=== PATIENT | female | born 2000 | race Caucasian/White ===

== ENCOUNTER 2020-04-29 20:00 | Emergency (ER) | payer MEDICAID, SELFPAY ==
[2020-04-29 20:04] VITALS: BP 115/64; PULSE 112; RESP 18; TEMP 36.7; O2SAT 99; BMI 19.2
[2020-04-29 21:09] LABS: Absolute Lymphocyte Count 1.36 X10^3/uL (0.83-4.51); Absolute Neutrophil Count 6.7 X10^3/uL (2.0-7.7); Basophil# 0.04 X10^3/uL; Basophil% 0.4 % (0-1); Eosinophil# 0.17 X10^3/uL; Eosinophils% 1.9 % (0-5); Hematocrit 37.7 % (37-47); Hemoglobin 12.4 g/dL (12.0-15.0); Lymphocyte # 1.36 X10^3/ul (4.0); Lymphocyte % 15.2 % (19-41); Mean Corp Hgb Conc 32.9 g/dL (32-36); Mean Corpuscular Hgb 31.7 pg (27.0-32.0); Mean Corpuscular Volume 96.4 fL (81-99); Mean Platelet Vol. 10.4 fl (6.2-12.0); Monocyte# 0.63 X10^3/uL; NRBC Flagged by Analyzer 0 % (0-5); Neutrophil # 6.72 X10^3/uL (2.7-7.7); Neutrophil % 75.3 % (47-70); Platelet Count 207 K/mm3 (150-450); RBC Distribution Width CV 12.1 % (11.6-14.6); RBC Distribution Width SD 42.7 fl (35.1-43.9); Red Blood Count 3.91 M/mm3 (4.2-5.4); White Blood Count 8.9 K/mm3 (4.4-11.0)
[2020-04-29 21:12] LABS: Internal QC Validated? YES +Cl - CLEAR BKGD; Pregnancy, Urine Negative Negative
[2020-04-29 21:25] LABS: Anion Gap 4 (5-15); BUN 15 mg/dL (7-18); BUN/Creat Ratio 23.9 RATIO (10-20); Calcium,Total 8.8 mg/dL (8.5-10.1); Chloride 104 mmol/L (98-107); Creatinine, Serum 0.63 mg/dL (0.55-1.02); EST Glomerular Filtration Rate 127 mL/min (>60); Est Glom Filt Rate - Afr Amer 154 mL/min (>60); Estimated Creatinine Clearance 113.29 ml/min; Glucose 95 mg/dL (74-106); Potassium 3.8 mmol/L (3.5-5.1); Sodium Level 138 mmol/L (136-145)
[2020-04-29 21:28] LABS: Amphetamine Urine VISTA NEGATIVE (<1000 ng/mL); Barbiturate Urine VISTA NEGATIVE (< 200 ng/mL); Benzodiazepine Urine VISTA NEGATIVE (< 200 ng/mL); Cocaine Urine VISTA NEGATIVE (< 300 ng/mL); Ecstacy Urine VISTA NEGATIVE (< 500 ng/mL); Methadone Urine VISTA NEGATIVE (< 300 ng/mL); PCP Urine VISTA NEGATIVE (< 25 ng/mL); THC Urine VISTA NEGATIVE (< 50 ng/mL); Vista UDS pH Range 5
[2020-04-29 21:37] LABS: Alcohol, Blood (Medical)-Serum < 3.0 mg/dL
[2020-04-29 21:39] VITALS: BP 126/68; PULSE 93; RESP 16; O2SAT 100
--- NOTE | 2020-04-29 22:27 | ED.VISSUMM ---
- ER Visit Summary Date of Service: 04/29/20 Chief Complaint: Detox from methamphetamine History of Present Illness: The patient is a 20 F who presents requesting detox from methamphetamine. Patient states she uses less than 0.4 g/day. Patient states she snorts and smokes the methamphetamine. Patient states her last use was 3 days ago. Patient states she was told to come to the emergency department for admission to detox if she felt like she would not be able to make it through the weekend without relapsing. Patient denies any fevers or chills. Patient denies any chest pain or shortness of breath. Patient denies any nausea or vomiting. Patient does admit to some mild low back pain. Patient states she also uses marijuana occasionally. Physical Examination: Vital signs are stable. Patient is afebrile. Patient is in no acute distress. Oral mucosa is pink and moist. Neck is supple. Trachea is midline. There is no JVD noted. Heart was regular rate and rhythm. Lungs are clear and equal bilaterally. Abdomen is soft. Bowel sounds are normal. There is no tenderness. There is no rebound or guarding noted. Skin is warm dry. Cranial nerves II through XII are intact. There are no focal motor or sensory deficits noted. Extremities are intact. There is no calf tenderness or edema. Test Results: CBC and basic metabolic profile were obtained and were within normal limits. Urine hCG was negative. Urine tox screen was negative. Serum alcohol level was negative. Liver profile was obtained and was within normal limits. Emergency Department Course and Treatment: Patient was feeling better on reevaluation. Case was discussed with the hospitalist. He informed me that there is no indication for hospitalization for methamphetamine abuse. Patient will be given instructions to follow-up with 180 tomorrow. Patient was instructed to return if worse in any way. Patient understood and was agreeable with the plan. All questions were answered. Disposition: Discharge home Impression: 1. Methamphetamine abuse This note was generated with [employer] dictation software. It may contain incorrect words, spelling, and punctuation that were not noted in review of the chart prior to signing ED Disposition - Plan for ED Patient: Disposition: Home or Assisted Living Diagnosis: Methamphetamine abuse Instructions: ED AMPHETAMINE ABUSE Referrals: [facility] [STAFF PHYSICIAN] - 1-2 Days if not improving [facility] TIJERINA [Other] - 3-5 Days
[2020-04-29 22:52] LABS: AST(SGOT) 11 U/L (15-37); Alanine Aminotransfer ALT/SGPT 18 U/L (13-56); Alkaline Phosphatase 48 U/L (45-117); Bilirubin, Direct 0.26 mg/dL (0.00-0.30); Globulin 3.3 g/dL (2.2-4.2); Protein, Total 7.3 g/dL (6.4-8.2)
[2020-04-30 00:12] VITALS: RESP 16
== END 2020-04-30 00:13 | disposition home or self-care (01) ==
PROVIDERS: Emergency Provider Emergency Medicine
DX: F15.10 Other stimulant abuse, uncomplicated (principal); Z72.0 Tobacco use
CPT/HCPCS: 36415; 80048; 80076; 80307; 80320; 81025; 85025; 99282; G0480

== ENCOUNTER 2020-12-13 10:34 | Emergency (ER) | payer MEDICAID, SELFPAY ==
[2020-12-13 10:36] VITALS: BP 134/81; PULSE 113; RESP 16; TEMP 36.9; O2SAT 98
--- NOTE | 2020-12-13 11:11 | ED.DCSUM_ITS ---
- ER Visit Summary Date of Service: 12/13/20 Chief Complaint: [Fever] History of Present Illness: The patient is a 20 F [presents to the emergency department complaint of a fever that started yesterday. Patient also complains of cough, mild headache, sore throat, chills and sweats. Her temperature at home yesterday was 100.2. Patient denies any Covid exposures. She did not get a flu shot this year. Patient complains of decreased appetite this morning and some nausea but no vomiting. She denies abdominal pain. Cough is been nonproductive. Patient has no medical history. Patient states that she has been clean of drugs and alcohol for 6 months.] Physical Examination: [HEGENTRY-PERRLA, EOMI. Cranial nerves II through XII grossly intact. TMs clear. Mucous membranes moist. No adenopathy. Cardiovascular-regular rate and rhythm without murmur or ectopy Lungs-clear to auscultation, chest wall stable without crepitus or subcu emphysema Abdomen-normoactive bowel sounds, soft, nontender, no rebound or rigidity, no peritoneal signs. Extremities-intact ?4, normal range of motion, normal pulses, atraumatic] Test Results: [COVID-19 test was positive] Emergency Department Course and Treatment: [None indicated] Treatment Plan: [Patient advised to quarantine for 14 days] Disposition: [Discharged home in stable condition] Impression: [COVID-19 upper respiratory infection] This note was generated with [employer] dictation software. It may contain incorrect words, spelling, and punctuation that were not noted in review of the chart prior to signing ED Disposition - Plan for ED Patient: Referrals: [facility] Doctor,Out of [NON-STAFF] -
--- NOTE | 2020-12-13 12:18 | ED.DEP ---
ED Disposition - Plan for ED Patient: Instructions: Coronavirus Disease 2019 (COVID-19): Overview, Coronavirus Disease 2019 (COVID-19): Caring for Yourself or Others Referrals: [facility],Out of [NON-STAFF] - 1 Week if not improving Additional Instructions: self quarantine for 14 days
[2020-12-13 12:32] VITALS: PULSE 90; RESP 18; O2SAT 98
== END 2020-12-13 12:50 | disposition home or self-care (01) ==
LOC: ED 12:05
PROVIDERS: Emergency Provider Emergency Medicine
DX: U07.1 COVID-19 (principal); J06.9 Acute upper respiratory infection, unspecified; Z72.0 Tobacco use
CPT/HCPCS: 87426; 87804; 99282

== ENCOUNTER → 2021-07-27 | Outpatient (CLI) | payer MEDICAID, SELFPAY | END | disposition home or self-care (01) | LOC: LABSPEC 15:09 | PROVIDERS: Visit Provider Physician Assistant | DX: Z20.822 Contact with and (suspected) exposure to COVID-19 (principal) | CPT/HCPCS: 87635; U0005; U0003 ==

== ENCOUNTER 2021-11-30 15:01 | Outpatient (CLI) | payer MEDICAID, SELFPAY ==
[2021-11-30 16:23] LABS: Absolute Lymphocyte Count 1.32 X10^3/uL (0.83-4.51); Absolute Neutrophil Count 4.9 X10^3/uL (2.0-7.7); Basophil# 0.06 X10^3/uL; Basophil% 0.9 % (0-1); Eosinophil# 0.14 X10^3/uL; Hematocrit 37.7 % (37-47); Hemoglobin 12.3 g/dL (12.0-15.0); Lymphocyte # 1.32 X10^3/ul (0.83-4.51); Lymphocyte % 19.3 % (19-41); Mean Corp Hgb Conc 32.6 g/dL (32-36); Mean Corpuscular Hgb 30.5 pg (27.0-32.0); Mean Corpuscular Volume 93.5 fL (81-99); Mean Platelet Vol. 10.6 fl (6.2-12.0); Monocyte# 0.44 X10^3/uL; Monocyte% 6.4 % (0-10); NRBC Flagged by Analyzer 0 % (0-5); Neutrophil # 4.86 X10^3/uL (2.7-7.7); Neutrophil % 71.3 % (47-70); Platelet Count 223 K/mm3 (150-450); RBC Distribution Width CV 12.1 % (11.6-14.6); RBC Distribution Width SD 41.9 fl (35.1-43.9); Red Blood Count 4.03 M/mm3 (4.2-5.4); White Blood Count 6.8 K/mm3 (4.4-11.0)
[2021-11-30 16:58] LABS: Amphetamine Urine VISTA NEGATIVE (<1000 ng/mL); Barbiturate Urine VISTA NEGATIVE (< 200 ng/mL); Benzodiazepine Urine VISTA NEGATIVE (< 200 ng/mL); Cocaine Urine VISTA NEGATIVE (< 300 ng/mL); Ecstacy Urine VISTA NEGATIVE (< 500 ng/mL); Methadone Urine VISTA NEGATIVE (< 300 ng/mL); PCP Urine VISTA NEGATIVE (< 25 ng/mL); THC Urine VISTA NEGATIVE (< 50 ng/mL); Vista UDS pH Range 5
[2021-12-01 09:54] LABS: HIV - WCH Non-Reactive (Nonreactive); Hepatitis B Surface Antigen Non-Reactive (Nonreactive); Hepatitis C Antibody Non-Reactive (Nonreactive); Rubella IgG Reactive (Nonreactive); Syphilis Antibodies Non-reactive
[2021-12-04 18:08] LABS: Chlamydia By Nucleic Acid AMP Negative (Negative)
[2021-12-05 12:44] LABS: Gonococcus By Nucleic Acid AMP Negative (Negative)
[2021-12-05 20:57] LABS: HPV Reflexed? NOT INDICATED
== END 2021-11-30 23:59 | disposition short-term general hospital (02) ==
PROVIDERS: Visit Provider Student in an Organized Health Care Education/Training Program
DX: Z34.81 Encounter for supervision of other normal pregnancy, first trimester (principal); Z12.4 Encounter for screening for malignant neoplasm of cervix; Z11.3 Encounter for screening for infections with a predominantly sexual mode of transmission
CPT/HCPCS: 36415; 80307; 85025; 86703; 86762; 86780; 86803; 87086; 87088; 87340; 87491; 87591; 88175; G0145

== ENCOUNTER 2021-12-15 07:07 | Day surgery (SDC) | payer MEDICAID, SELFPAY ==
[2021-12-14 13:54] LABS: Hematocrit 35.7 % (37-47); Hemoglobin 11.9 g/dL (12.0-15.0); Mean Corp Hgb Conc 33.3 g/dL (32-36); Mean Corpuscular Hgb 31.7 pg (27.0-32.0); Mean Corpuscular Volume 95.2 fL (81-99); Mean Platelet Vol. 10.3 fl (6.2-12.0); Platelet Count 206 K/mm3 (150-450); RBC Distribution Width SD 41.8 fl (35.1-43.9); Red Blood Count 3.75 M/mm3 (4.2-5.4); White Blood Count 6.6 K/mm3 (4.4-11.0)
[2021-12-15] VITALS (7 sets, daily range): BP systolic 85–109; BP diastolic 55–81; PULSE 65–82; RESP 16–18; TEMP 36.2–36.6; O2SAT 99–100; BMI 23.4
--- NOTE | 2021-12-15 | POC_PTH ---
PATIENT: SIMÓN DELONG LOC: [facility] [place] U#:[id number] AGE/SX: ROOM: RE12/15/[address]: Dr. Yady Gallo, : 2000 BED: DIS: 12/15/2021 SPEC #: [id number] RECD: 12/15/21 11:32 STATUS: NICO WOOD #: [id number] BRADY: 12/15/21 00:[address]: Yady Gallo DEPT: SURGICAL PATHOLOGY RECD BY: Bárbara Panda Tissues: Product of conception, NOS Procedures: Surgery Specimen Level IV HEADER OPERATION: Suction dilation and curettage PRE-OP DIAGNOSIS: Missed TISSUE SUBMITTED: Products of conception MICROSCOPIC DIAGNOSIS Endometrium, curettage: Chorionic villi, decidualized stroma and trophoblastic cells consistent with products of conception. AM:amado 12/18/2021 MICROSCOPIC DESCRIPTION Slides are reviewed. GROSS DESCRIPTION Received in fixative is one container labeled with the patient's name and designated products of conception. The specimen consists of multiple fragments of hemorrhagic soft tissue that in aggregate measure 8 x 6 x 3 cm. tissue is not identified. Retail Account Specialist tissue is submitted in three cassettes. / SJ:amado 12/15/2021 TC:5 CPT: 53630
[2021-12-15] MEDS: Lactated Ringers 1,000 ML 125 ML IV (07:35)
--- NOTE | 2021-12-15 08:17 | PCM.HP.BLA ---
History and Physical Date of Admission: 12/15/21 HISTORY OF PRESENT ILLNESS: On 12/12/2021, Betsy Ramos, a 21 year old female 2 0 1 0 2, presented for dilation and curettage for missed at 9 weeks. Denies cramping, bleeding, fevers or chills, nausea/emesis, chest pain, dyspnea, diarrhea/constipation. MEDICAL HISTORY: Denies ALLERGIES: No Known Drug Allergies MEDICATIONS HISTORY: 1. promethazine 12.5 mg tablet, 1 tab every 6 hours as needed for nausea REVIEW OF SYSTEMS: Negative otherwise stated above SURGICAL HISTORY: 1. T and A at age 8 MENSTRUAL HISTORY: LMP Known?- DefiniteAmount/Duration - 5 to 7 days, Regularity - Regular, Frequency - monthly days, LMP - 10/06/21, Age Onset Menarche - 9 PAST PREGNANCIES: Total Pregnancies - 3; Full Term Pregnancies - 2; Premature - 0; Abortions, Induced - 0; Abortions, Spontaneous - 1; Ectopics - 0; Multiple Births - 0; Living Children - 2 FAMILY HISTORY: Noncontributory SOCIAL HISTORY: Alcohol Use - denies drinking Smoking - used to smoke but quit and stopped smoking 6 months ago Drug Use - denies PHYSICAL EXAMINATION CONSTITUTIONAL - NAD, well nourished, and well developed SKIN - No rash, lesions, or ulcers HEENT - Normocephalic, PERRLA, EOMI LUNGS - normal respiratory rate and rhythm EXTREMITIES - No edema or calf tenderness NEUROLOGICAL - Cranial nerves II-XII grossly intact PSYCHIATRIC - A and O to time, place, person, mood and affect ASSESSMENT/PLAN BY DIAGNOSIS: 1. Missed 07/05w CRL without cardiac activity. Diagnosis of missed Elects for surgical management. R/B/A discussed. Risks include, but are not limited to: risk of bleeding to the point of transfusion, infection, injury to surrounding to surrounding tissue (bowel/bladder/uterine perforation), VTE, ICU admission.
--- NOTE | 2021-12-15 08:27 | PCM.OPRPT ---
Report of Operation Date of Procedure: 12/15/21 Pre-Operative Diagnosis: Missed Post-Operative Diagnosis: Missed Surgery/Procedure Performed:: Suction dilation and curettage Description of Surgical Findings:: Normal-appearing external genitalia. Products of conception removed. Type of Anesthesia: MAC Specimen's removed: Products of conception Estimated Blood Loss (mL): 100 cc Fluids Replaced: 500 cc Description of Procedure: Indications/risk/benefits: 21-year-old female with diagnosis of missed . Plan for dilation and curettage. All risks, benefits, alternatives were discussed. Risks include are not limited to: Risk of bleeding to the point of transfusion, infection, injury to surrounding tissue including bowel/bladder/uterine perforation, VTE, ICU admission. Patient aware and consented. Procedure: Patient taken to the operating room and MAC anesthesia induced. Patient placed in the dorsal lithotomy position and prepped and draped in the usual sterile fashion. Weighted speculum placed in posterior vagina and Garcia retractor used to visualize the cervix. Anterior lip of the cervix grasped with single-tooth tenaculum. Cervix sequentially dilated. Suction curette placed through cervical canal and used in a 360 degree manner to remove all products of conception from the uterine cavity. Single-tooth tenaculum removed, hemostatic with pressure from ring forceps. Cervix hemostatic. Weighted speculum removed. At the end of the procedure all needle, lap, sponge counts correct x2. Urine output: None measured Complications None
--- NOTE | 2021-12-15 08:28 | PCM.DC ---
Discharge Instructions Diet Discharge Diet: No restrictions Activity Discharge Activity: Return to Normal Activity, May Drive and May Shower May resume sexual activity in: 4 weeks Weight Bearing Status: Weight bearing as tolerated Lifting Restrictions: None Dressing / Incision Call your doctor if you observe: Fever of 101 or Higher, Inability to urinate, Using more than 1 pad per hour, Shortness of breath, Dizziness, Fainting spells, Chest pain, Calf discomfort and Uncontrolled pain Follow Up Care Please Follow Up With: Yady Gallo DO When: 2 weeks post operativ evisit Test Results: Test results from this visit will be discussed in further detail at your follow-up appointment, if applicable. Discharge Plan Admission Primary Reason for Your Visit: Miscarriage Attending Provider: Yady Gallo Discharge Orders/Prescriptions Prescriptions: No Action NK RF: 0 Referrals / Follow Up: AGUSTINA TIJERINA [Other] Disposition Disposition (needs filled in before D/C Order can be placed): Home, Self Care
== END 2021-12-15 23:59 | disposition home or self-care (01) ==
LOC: SDC 07:11 → AC 07:11
PROVIDERS: Referring Provider Student in an Organized Health Care Education/Training Program; Visit Provider Student in an Organized Health Care Education/Training Program
PROC: (CPT 59812; principal; 2021-12-15 08:30)
DX: O03.4 Incomplete spontaneous abortion without complication (principal); Z87.891 Personal history of nicotine dependence
CPT/HCPCS: 59812; 01965; 85027; 86850; 86900; 86901; 87426; 88305; C9803; J7120; J2405

== ENCOUNTER 2021-12-29 09:56 | Outpatient (CLI) | payer MEDICAID, SELFPAY ==
[2021-12-29 11:06] LABS: hCG Titer Quant., Serum 53 mIU/mL (1-3)
== END 2021-12-29 23:59 | disposition home or self-care (01) ==
LOC: WOBLAB 09:57
PROVIDERS: Visit Provider Student in an Organized Health Care Education/Training Program
DX: O03.9 Complete or unspecified spontaneous abortion without complication (principal)
CPT/HCPCS: 36415; 84702

== ENCOUNTER 2022-01-05 08:58 | Outpatient (CLI) | payer MEDICAID, SELFPAY ==
[2022-01-05 10:07] LABS: hCG Titer Quant., Serum 16 mIU/mL (1-3)
== END 2022-01-05 23:59 | disposition home or self-care (01) ==
PROVIDERS: Visit Provider Obstetrics & Gynecology
DX: O02.1 Missed abortion (principal)
CPT/HCPCS: 36415; 84702

== ENCOUNTER 2022-02-13 14:34 | Emergency (ER) | payer MEDICAID, SELFPAY ==
[2022-02-13 14:35] VITALS: BP 121/66; PULSE 84; RESP 12; TEMP 35.8; BMI 23.3
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
== END 2022-02-13 15:33 | disposition home or self-care (01) ==
PROVIDERS: Emergency Provider Emergency Medicine; Visit Provider Emergency Medicine
DX: S29.011A Strain of muscle and tendon of front wall of thorax, initial encounter (principal); V44.6XXA Car passenger injured in collision with heavy transport vehicle or bus in traffic accident, initial encounter; Z87.891 Personal history of nicotine dependence
CPT/HCPCS: 71046; 99283

== ENCOUNTER → 2022-08-30 | Outpatient (CLI) | payer MEDICAID, SELFPAY ==
[2022-08-30 14:51] LABS: Absolute Lymphocyte Count 1.14 X10^3/uL (0.83-4.51); Absolute Neutrophil Count 7.3 X10^3/uL (2.0-7.7); Basophil# 0.06 X10^3/uL; Basophil% 0.7 % (0-1); Eosinophil# 0.09 X10^3/uL; Hematocrit 33.1 % (37-47); Hemoglobin 11.3 g/dL (12.0-15.0); Lymphocyte # 1.14 X10^3/ul (0.83-4.51); Lymphocyte % 12.5 % (19-41); Mean Corp Hgb Conc 34.1 g/dL (32-36); Mean Corpuscular Hgb 31.4 pg (27.0-32.0); Mean Corpuscular Volume 91.9 fL (81-99); Mean Platelet Vol. 10.7 fl (6.2-12.0); Monocyte# 0.47 X10^3/uL; Monocyte% 5.2 % (0-10); NRBC Flagged by Analyzer 0 % (0-5); Neutrophil # 7.33 X10^3/uL (2.7-7.7); Neutrophil % 80.3 % (47-70); Platelet Count 215 K/mm3 (150-450); RBC Distribution Width CV 12.7 % (11.6-14.6); RBC Distribution Width SD 42.4 fl (35.1-43.9); White Blood Count 9.1 K/mm3 (4.4-11.0)
[2022-08-30 15:58] LABS: HIV - WCH Non-Reactive (Nonreactive); Hepatitis B Surface Antigen Non-Reactive (Nonreactive); Hepatitis C Antibody Non-Reactive (Nonreactive); Rubella IgG Reactive (Nonreactive); Syphilis Antibodies Non-reactive
[2022-09-01 09:43] LABS: V-Zoster IgG (Immunity) 665 index (Immune >165)
[2022-09-04 04:07] LABS: Chlamydia By Nucleic Acid AMP Negative (Negative)
[2022-09-04 18:03] LABS: Gonococcus By Nucleic Acid AMP Negative (Negative)
== END | disposition home or self-care (01) ==
LOC: WOBLAB 14:10
PROVIDERS: Visit Provider Obstetrics & Gynecology
DX: Z34.81 Encounter for supervision of other normal pregnancy, first trimester (principal)
CPT/HCPCS: 36415; 85025; 86703; 86762; 86780; 86787; 86803; 87077; 87086; 87088; 87186; 87340; 87491; 87591

== ENCOUNTER → 2023-01-09 | Outpatient (CLI) | payer MEDICAID, SELFPAY ==
[2023-01-09 11:33] LABS: Absolute Lymphocyte Count 1.14 X10^3/uL (0.83-4.51); Absolute Neutrophil Count 7.2 X10^3/uL (2.0-7.7); Basophil# 0.05 X10^3/uL; Basophil% 0.5 % (0-1); Eosinophil# 0.14 X10^3/uL; Eosinophils% 1.5 % (0-5); Hematocrit 28.9 % (37-47); Hemoglobin 9.3 g/dL (12.0-15.0); Lymphocyte # 1.14 X10^3/ul (0.83-4.51); Lymphocyte % 12.4 % (19-41); Mean Corp Hgb Conc 32.2 g/dL (32-36); Mean Corpuscular Hgb 31.6 pg (27.0-32.0); Mean Corpuscular Volume 98.3 fL (81-99); Mean Platelet Vol. 9.8 fl (6.2-12.0); Monocyte# 0.63 X10^3/uL; Monocyte% 6.9 % (0-10); NRBC Flagged by Analyzer 0 % (0-5); Neutrophil # 7.17 X10^3/uL (2.7-7.7); Neutrophil % 78.3 % (47-70); Platelet Count 228 K/mm3 (150-450); RBC Distribution Width CV 12.3 % (11.6-14.6); RBC Distribution Width SD 44.2 fl (35.1-43.9); Red Blood Count 2.94 M/mm3 (4.2-5.4); White Blood Count 9.2 K/mm3 (4.4-11.0)
[2023-01-09 11:40] LABS: Glucose Challenge Gest 1H 50g 82 mg/dL (70-140)
== END | disposition home or self-care (01) ==
PROVIDERS: Visit Provider Obstetrics & Gynecology
DX: Z34.82 Encounter for supervision of other normal pregnancy, second trimester (principal)
CPT/HCPCS: 36415; 82950; 85025

== ENCOUNTER → 2023-01-18 | Outpatient (CLI) | payer MEDICAID, SELFPAY ==
--- NOTE | 2023-01-18 09:01 | BI_ITS ---
MAMMOGRAPHY - BILATERAL DIAGNOSTIC REASON FOR EXAM: Female, 22 years old. Discharge PERTINENT HISTORY: Grandmother with breast cancer. TECHNIQUE: Digital examination. Mediolateral oblique (MLO) and craniocaudad (CC) views of both breasts were obtained, along with 3-D tomosynthesis. CAD: CAD was performed on this study. COMPARISON: None. Baseline examination. FINDINGS: Breast Composition: Breasts are extremely dense, patient is . There are no dominant masses or suspicious calcifications. No other significant abnormalities are identified. BI/DIAG MAMM W/CAD, BILAT IMPRESSION: Negative diagnostic mammogram. ASSESSMENT CATEGORY: BIRADS Category 1: Negative. A letter regarding these results will be sent to the patient by the facility within 30 days. FOLLOW UP RECOMMENDATION: No imaging follow up needed. (O) Approximately 10% of breast cancers are not detected by mammography. A normal mammogram should not delay biopsy of a clinically suspicious abnormality. Electronically Signed: Yaya Moran MD at 9:49 EDT ,
== END | disposition home or self-care (01) ==
LOC: OPBI 08:59
PROVIDERS: Referring Provider Obstetrics & Gynecology; Visit Provider Obstetrics & Gynecology
DX: O92.29 Other disorders of breast associated with pregnancy and the puerperium (principal); Z3A.00 Weeks of gestation of pregnancy not specified
CPT/HCPCS: 77062; 77066; G0279

== ENCOUNTER → 2023-03-19 | Outpatient (CLI) | payer MEDICAID, SELFPAY ==
[2023-03-19 10:11] LABS: Absolute Lymphocyte Count 1.14 X10^3/uL (0.83-4.51); Absolute Neutrophil Count 6.1 X10^3/uL (2.0-7.7); Basophil# 0.03 X10^3/uL; Basophil% 0.4 % (0-1); Eosinophils% 1.3 % (0-5); Hematocrit 27.2 % (37-47); Hemoglobin 8.5 g/dL (12.0-15.0); Lymphocyte # 1.14 X10^3/ul (0.83-4.51); Lymphocyte % 14.5 % (19-41); Mean Corp Hgb Conc 31.3 g/dL (32-36); Mean Corpuscular Hgb 27.6 pg (27.0-32.0); Mean Corpuscular Volume 88.3 fL (81-99); Mean Platelet Vol. 10.5 fl (6.2-12.0); Monocyte# 0.43 X10^3/uL; Monocyte% 5.5 % (0-10); NRBC Flagged by Analyzer 0 % (0-5); Neutrophil % 77.7 % (47-70); Platelet Count 226 K/mm3 (150-450); RBC Distribution Width CV 13.7 % (11.6-14.6); RBC Distribution Width SD 44.6 fl (35.1-43.9); Red Blood Count 3.08 M/mm3 (4.2-5.4); White Blood Count 7.9 K/mm3 (4.4-11.0)
[2023-03-19 10:42] LABS: Syphilis Antibodies Non-reactive
== END | disposition home or self-care (01) ==
LOC: WOBLAB 09:32
PROVIDERS: Visit Provider Obstetrics & Gynecology
DX: Z34.83 Encounter for supervision of other normal pregnancy, third trimester (principal)
CPT/HCPCS: 36415; 85025; 86780

== ENCOUNTER 2023-03-21 12:26 | Outpatient (CLI) | payer MEDICAID, SELFPAY ==
[2023-03-21] MEDS: 0.9% NaCl Peripheral Flush Adult/Peds IV (12:53)
[2023-03-21] MEDS: 0.9% NaCl IVPB Med Flush (250 mL) 15 ML IV (12:53)
[2023-03-21 12:54] VITALS: BP 111/59; PULSE 89; RESP 14; TEMP 36.9; O2SAT 98; BMI 29.5
[2023-03-21 14:06] VITALS: BP 119/57; PULSE 95; RESP 16; TEMP 37.2; O2SAT 98
== END 2023-03-21 12:27 | disposition home or self-care (01) ==
LOC: MEDOUTP 12:26
PROVIDERS: Referring Provider Obstetrics & Gynecology; Visit Provider Obstetrics & Gynecology
DX: O99.283 Endocrine, nutritional and metabolic diseases complicating pregnancy, third trimester (principal); E61.1 Iron deficiency; Z3A.37 37 weeks gestation of pregnancy
CPT/HCPCS: 96365; J1756; J7050; A4216

== ENCOUNTER 2023-03-29 10:50 | Outpatient (CLI) | payer MEDICAID, SELFPAY ==
[2023-03-29] MEDS: 0.9% NaCl Peripheral Flush Adult/Peds IV (11:01)
[2023-03-29] MEDS: 0.9% NaCl IVPB Med Flush (250 mL) 15 ML IV (11:01)
[2023-03-29 11:04] VITALS: BP 99/60; PULSE 85; RESP 16; TEMP 36.4
[2023-03-29 12:02] VITALS: BP 116/63; PULSE 84; RESP 16
== END 2023-03-29 10:51 | disposition home or self-care (01) ==
LOC: MEDOUTP 10:50
PROVIDERS: PCP Family Medicine; Referring Provider Obstetrics & Gynecology; Visit Provider Obstetrics & Gynecology
DX: E61.1 Iron deficiency (principal)
CPT/HCPCS: 96365; J1756; J7050; A4216

== ENCOUNTER 2023-04-08 21:00 | Inpatient (IN) | payer MEDICAID, SELFPAY ==
[2023-04-08] VITALS (25 sets, daily range): BP systolic 96–148; BP diastolic 53–69; PULSE 68–100; TEMP 36.4–36.6; O2SAT 92–99; BMI 30.5
[2023-04-08] MEDS: LACTATED RINGERS 500 ML 999 ML IV (21:20)
[2023-04-08] MEDS: Ondansetron 4 MG/2 ML Vial IV (21:30)
[2023-04-08 21:38] LABS: Absolute Lymphocyte Count 1.14 X10^3/uL (0.83-4.51); Absolute Neutrophil Count 9.5 X10^3/uL (2.0-7.7); Basophil# 0.03 X10^3/uL; Basophil% 0.3 % (0-1); Eosinophil# 0.09 X10^3/uL; Eosinophils% 0.8 % (0-5); Hematocrit 32.9 % (37-47); Hemoglobin 10.1 g/dL (12.0-15.0); Lymphocyte # 1.14 X10^3/ul (0.83-4.51); Mean Corp Hgb Conc 30.7 g/dL (32-36); Mean Corpuscular Hgb 27.7 pg (27.0-32.0); Mean Corpuscular Volume 90.4 fL (81-99); Mean Platelet Vol. 10.1 fl (6.2-12.0); Monocyte# 0.66 X10^3/uL; Monocyte% 5.8 % (0-10); NRBC Flagged by Analyzer 0 % (0-5); Neutrophil # 9.46 X10^3/uL (2.7-7.7); Neutrophil % 82.7 % (47-70); Platelet Count 255 K/mm3 (150-450); RBC Distribution Width SD 64.7 fl (35.1-43.9); Red Blood Count 3.64 M/mm3 (4.2-5.4); White Blood Count 11.4 K/mm3 (4.4-11.0)
[2023-04-08] MEDS: Lactated Ringers 1,000 ML 200 ML IV (21:51)
--- NOTE | 2023-04-08 21:52 | PCM.HP.BLA ---
History and Physical Date of Admission: 04/08/23 HPI: 23-year-old G 4P2 at 40/2 weeks, DIVINE 04/06/2023 by LMP, admitted for labor. Denies leaking of fluid or vaginal bleeding. Reports movement. Denies headache or vision changes, chest pain or shortness of breath, nausea or vomiting, diarrhea constipation, fevers or chills. 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 Tonsillectomy and adenoidectomy 2. Dilation curettage, December 2021 for miscarriage Medications: vitamin, Zoloft Allergies: No known drug allergies Social history: Former tobacco smoker, denies alcohol, former amphetamine use Review system: Negative otherwise stated above Physical exam: Blood pressure 126/63, pulse 93, temp 97.8 ?F General: Uncomfortable with contractions HEENT: Normal cephalic/atraumatic Cardiorespiratory: No increased effort Abdomen: Soft, nontender, gravid Extremities: Minimal edema Neurologic: Cranial nerves II through XII grossly intact, no focal deficits Musculoskeletal: Moves all extremities equally Cervical exam: On admission 5 cm per RN heart rate: 135/mod wilbert/+accel/occasional variable decel [place]: q3-4 Assessment/plan: 23-year-old G 4P2 at 40/2 weeks, DIVINE 04/06/2023 by LMP, admitted for labor. complicated by: GBS positive, history of 35-week delivery for placental abruption, iron deficiency anemia status post Venofer, depression on Zoloft, history of amphetamine use in past. ?Admit for labor. Routine orders ? GBS positive, penicillin ? Desires epidural ? Iron deficiency anemia. Stable on admission. ? Depression: Continue Zoloft ? History of amphetamine use, no longer using. Drug screen done on admission, results pending.
[2023-04-08] MEDS: fentaNYL-bupivacaine (epidural) 100 ML BAG EPIDURAL (22:14)
[2023-04-08 22:15] LABS: Amphetamine Urine VISTA NEGATIVE (<1000 ng/mL); Barbiturate Urine VISTA NEGATIVE (< 200 ng/mL); Benzodiazepine Urine VISTA NEGATIVE (< 200 ng/mL); Cocaine Urine VISTA NEGATIVE (< 300 ng/mL); Ecstacy Urine VISTA NEGATIVE (< 500 ng/mL); Methadone Urine VISTA NEGATIVE (< 300 ng/mL); PCP Urine VISTA NEGATIVE (< 25 ng/mL); THC Urine VISTA NEGATIVE (< 50 ng/mL); Vista UDS pH Range 6
[2023-04-08 22:20] LABS: Syphilis Antibodies Non-reactive
--- NOTE | 2023-04-08 23:25 | NURSING ---
during admission pt admitted to this RN that she has a prior substance abuse. pt states that she had used meth for 1 year and has been clean for almost 3 years. pt states that last use date was April 26, 2020. discussed with pt regarding urine tox screening due to history of prior drug use and verbal consent given per pt. discussed unit social work to see pt due to substance history and mental history.
[2023-04-09] VITALS (35 sets, daily range): BP systolic 91–117; BP diastolic 43–59; PULSE 74–137; RESP 15–16; TEMP 36.2–36.9; O2SAT 93–100
[2023-04-09] MEDS: LACTATED RINGERS 500 ML 999 ML IV (00:23)
[2023-04-09] MEDS: Oxytocin 10 UNITS/ML Vial IM (01:14)
[2023-04-09] MEDS: Oxytocin 15 Units/NS 250ml 15 UNITS/250 ML IV.SOLN 83 UNITS IV (01:15)
--- NOTE | 2023-04-09 01:25 | EX.PCM.OBRPT ---
Maternal Data Information Final DIVINE: 04/06/23 Vaginal Delivery Operative Information Date of Procedure: 04/09/23 Pre-Operative Diagnosis: Priest intrauterine at term Post-Operative Diagnosis: Priest intrauterine at term Surgery / Procedure Performed: Spontaneous Vaginal Delivery Type of Anesthesia: Epidural Estimated Blood Loss: 400cc Findings Description of Procedure: Spontaneous vaginal delivery of viable male. No nuchal cord. Baby to mom. Cord clamped and cut. Baby to therapy technician and nursing staff, who was present for meconium fluid, for assessment. Spontaneous delivery of the placenta. First-degree and left labial lacerations repaired in the usual fashion. Hemostatic. APGARS pending. Infant A Gender: Male Complication Complications: None
[2023-04-09] MEDS: Sertraline 50 MG Tablet PO (10:12)
[2023-04-09] MEDS: Ibuprofen 600 MG Tablet PO (10:12)
[2023-04-09] MEDS: Acetaminophen 500 MG Tablet 1000 MG PO ×2 (13:06→21:08)
--- NOTE | 2023-04-09 16:03 | NURSING ---
FOB on slumped on couch sleeping
[2023-04-10 01:32] VITALS: BP 110/55; PULSE 76; RESP 16; TEMP 36.4; O2SAT 98
[2023-04-10] MEDS: Ibuprofen 600 MG Tablet PO (02:32)
--- NOTE | 2023-04-10 07:22 | DS.PCM_ITS ---
Discharge Summary Date of Admission: 04/08/23 Date of Discharge: 04/10/23 Summary: Patient arrived on 04/08/2023 in labor. Subsequently delivered vaginally on 04/09/2023. Routine recovery. Discharged home on 04/10/2023. Meaningful Use Info Meaningful Use Diagnoses (Choose all that apply): None applicable Discharge Plan Admission Admit Date/Time: 04/08/23 21:00 Primary Reason for Your Visit: Labor Attending Provider: Yady Gallo Primary Care Provider: Olga Lidia Anderson Instructions Additional Instructions / Restrictions: Regular diet. Weightbearing as tolerated. Okay to shower. No intercourse for 4 to 6 weeks. Call if fevers, chills, chest pain, shortness of breath. Follow- up 4 to 6 weeks Discharge Orders/Prescriptions Prescriptions: No Action PNV [id number] [] 28 mg iron- 800 mcg Tablet 1 tab PO DAILY sertraline [Zoloft] 50 mg Tablet 50 mg PO DAILY Referrals / Follow Up: Olga Lidia Anderson DO [Primary Care Provider] - Disposition Disposition (needs filled in before D/C Order can be placed): Home, Self Care
--- NOTE | 2023-04-10 07:24 | PCM.PN.OB ---
Subjective Subjective No overnight complaint Objective Data Objective Data Vital Signs: Vital Signs Temp Pulse Resp BP Pulse Ox O2 Del Method 97.6 F L 76 16 110/55 L 98 Room Air 04/10/23 01:32 04/10/23 01:32 04/10/23 01:32 04/10/23 01:32 04/10/23 01:32 04/10/23 01:32 Oxygen Delivery Method Room Air Weight: 178 lb Body Mass Index (BMI) 30.5 Intake & Output: Intake and Output for Last 24 Hours 04/08/23 04/09/23 04/10/23 23:59 23:59 23:59 Intake Total 605 / 605 1530 / 1530 Output Total 400 / 400 1750 / 1750 Balance 205 / 205 -220 / -220 Lab / Micro Data Result Diagrams: 04/08/23 21:20 Physical Exam Const alert, oriented x3, no apparent distress, average body habitus, healthy appearing and well nourished HEENT normocephalic and moist oral mucous membranes Eyes PERRL Neck full ROM Resp normal respiratory effort, no retractions, no use of accessory muscles and clear to auscultation bilaterally GI GI Narrative: Soft, nontender, uterus firm and below umbilicus Extremity normal to inspection, full ROM and no clubbing, cyanosis or edema Neuro moves all extremities and no focal motor deficits Psych mental status grossly normal, affect normal, speech normal and activity/motor behavior normal Assessment & Plan (1) Vaginal delivery: PLAN: day 1. Breast-feeding. to see today. Pain well controlled. 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
[2023-04-10 08:07] VITALS: BP 103/55; PULSE 88; RESP 18; TEMP 36.5; O2SAT 98
[2023-04-10] MEDS: Sertraline 50 MG Tablet PO (10:30)
[2023-04-10 14:00] VITALS: BP 113/63; PULSE 87; RESP 18; TEMP 36.4; O2SAT 98
== END 2023-04-10 15:08 | disposition home or self-care (01) | DRG 560 ==
LOC: WPOUT 21:07 → WP 21:07
PROVIDERS: Admitting Provider Student in an Organized Health Care Education/Training Program; PCP Family Medicine; Referring Provider Student in an Organized Health Care Education/Training Program; Visit Provider Student in an Organized Health Care Education/Training Program
DX: O99.02 Anemia complicating childbirth (principal); Z37.0 Single live birth; O99.344 Other mental disorders complicating childbirth; D50.9 Iron deficiency anemia, unspecified; F32.A Depression, unspecified; O70.0 First degree perineal laceration during delivery; Z3A.40 40 weeks gestation of pregnancy; O99.824 Streptococcus B carrier state complicating childbirth; O77.0 Labor and delivery complicated by meconium in amniotic fluid; Z79.899 Other long term (current) drug therapy; Z87.59 Personal history of other complications of pregnancy, childbirth and the puerperium; Z87.891 Personal history of nicotine dependence
CPT/HCPCS: 59025; 59050; 80307; 85025; 86780; 86850; 86900; 86901; 99221; J7120; G0378; J2405

== ENCOUNTER 2023-06-17 05:53 | Day surgery (SDC) | payer MEDICAID, SELFPAY ==
[2023-06-17] VITALS (9 sets, daily range): BP systolic 94–110; BP diastolic 62–72; PULSE 50–95; RESP 13–20; TEMP 36.1–37.1; O2SAT 97–100; BMI 26.9
[2023-06-17 06:51] LABS: Mean Corp Hgb Conc 31.4 g/dL (32-36); Mean Corpuscular Hgb 28.4 pg (27.0-32.0); Mean Corpuscular Volume 90.2 fL (81-99); Mean Platelet Vol. 10.6 fl (6.2-12.0); Platelet Count 224 K/mm3 (150-450); RBC Distribution Width CV 15.1 % (11.6-14.6); RBC Distribution Width SD 50.2 fl (35.1-43.9); Red Blood Count 3.88 M/mm3 (4.2-5.4); White Blood Count 4.4 K/mm3 (4.4-11.0)
[2023-06-17 06:54] LABS: Internal QC Validated? YES +Cl - CLEAR BKGD; Pregnancy, Urine Negative Negative
[2023-06-17] MEDS: Lactated Ringers 1,000 ML 15 ML IV ×2 (06:55→09:03)
[2023-06-17 07:00] LABS: Partial Thromboplast Time 34.3 Seconds (24.1-36.2)
--- NOTE | 2023-06-17 07:17 | HP.PCM.OB_ITS ---
History and Physical Date of Admission: 06/17/23 HPI: 23-year-old female plan for laparoscopic tubal ligation. Denies headache or vision changes, chest pain or shortness of breath, nausea or vomiting, diarrhea constipation, fevers or chills. 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 Dilation curettage 2. Tonsillectomy and adenoidectomy Medications: 1. Zoloft Allergies: No known drug allergies Family history: Noncontributory Social history: Denies tobacco (reports former use), alcohol, drug use. Former methamphetamine use Review of system: Negative otherwise stated above Physical exam Vitals blood pressure 107/65, heart rate 56, respiratory rate 16, temp 97.2 ?F, oxygen saturation 100% on room air General: No acute distress HEENT: Normal cephalic/atraumatic Cardiac: Regular rate and rhythm Respiratory: Clear to auscultation bilaterally Abdomen: Soft, nontender Extremities: No edema Neurologic: No focal deficits Musculoskeletal: Strength 5 out of 5 throughout extremities Assessment/plan: 23-year-old female plan for laparoscopic tubal ligation. All risk, benefits, alternatives were discussed with the patient. Risk include but are not limited to: Risk of bleeding to the point transfusion, infection, injury to surrounding tissue including bowel/bladder/abdominal vessels, VTE, ICU admission. Patient aware of risk of regret. Patient aware that if she were to become she is to inform her provider immediately. Patient aware and consented.
--- NOTE | 2023-06-17 07:30 | FALS_PTH ---
PATIENT: SIMÓN DELONG [place] [facility] [facility] [id number] AGE/SX: 23/F ROOM: RE06/17/[address]: Dr. Steven Gallo MD : 2000 BED: DIS: 06/17/2023 SPEC #: [id number] RECD: 06/17/23 10:30 STATUS: NICO REMita #: [id number] BRADY: 06/17/23 07:[address]: Steven Gallo DEPT: SURGICAL PATHOLOGY RECD BY: Gunjan Jiang ENTERED: 06/17/23 10:40 SP TYPE: FALL TUBES OTHR DR: Olga Lidia Anderson DO Tissues: Fallopian tube Procedures: Surgery Specimen Level II HEADER OPERATION: Laparoscopic salpingectomy PRE-OP DIAGNOSIS: Sterilization TISSUE SUBMITTED: Right and left fallopian tubes MICROSCOPIC DIAGNOSIS Right and left fallopian tubes, bilateral salpingectomies: Complete segments of fallopian tubes with no significant pathologic change. AM:amado 06/18/2023 MICROSCOPIC DESCRIPTION Slides are reviewed. GROSS DESCRIPTION Received in fixative is one container labeled with the patient's name and designated bilateral fallopian tubes. The specimen consists of two fallopian tubes with an average length of 8.0 cm and has an average diameter of 0.7 cm. Both fallopian tubes have normal fimbriated ends. No mass lesions are identified. Immunopathologist sections are submitted in two cassettes as follows: 1 - one fallopian tube, 2??the other fallopian tube. / AM:amado 06/17/2023 TC:5 CPT: 92203 x2
--- NOTE | 2023-06-17 08:29 | DCINST_ITS ---
Discharge Instructions Diet Discharge Diet: No restrictions Activity Discharge Activity: Return to Normal Activity, May Drive and May Shower May resume sexual activity in: 6-8 weeks Lifting Restrictions: No lifting over 25 pounds for 2 to 3 weeks Dressing / Incision Call your doctor if your incision/area has: Continuous Slow Oozing and Foul Smelling Discharge Call your doctor if you observe: Fever of 101 or Higher, Shortness of breath and Chest pain Follow Up Care Please Follow Up With: Steven Gallo MD When: 2 weeks post op Test Results: Test results from this visit will be discussed in further detail at your follow- up appointment, if applicable. Discharge Plan Admission Attending Provider: Steven Gallo Primary Care Provider: Olga Lidia Anderson Discharge Orders/Prescriptions Prescriptions: No Action sertraline [Zoloft] 50 mg Tablet 100 mg PO QHS Referrals / Follow Up: Olga Lidia Anderson DO [Primary Care Provider] - Disposition Disposition (needs filled in before D/C Order can be placed): Home, Self Care
--- NOTE | 2023-06-17 08:30 | PCM.OPRPT ---
Report of Operation Date of Procedure: 06/17/23 Pre-Operative Diagnosis: Desires permanent sterilization Post-Operative Diagnosis: Desires permanent sterilization Surgery/Procedure Performed:: Laparoscopic bilateral salpingectomy Description of Surgical Findings:: Surgeon: Steven Gallo MD Anesthesia: General EBL: 25 cc Urine Output: 400 cc IV fluids: 1000 cc Complications: None Specimen: Bilateral fallopian tube Findings: Normal uterus, tubes, and ovaries. Posterior fundal perforation noted and hemostatic, Maxine placed over perforation Consent: Patient desires permanent sterilization elects for laparoscopic bilateral salpingectomy. Patient understands risk of the procedure include but are not limited to visceral vascular injury, prolonged hospitalization, blood loss need for transfusion, reoperation. Patient state understanding wish to proceed. All questions were answered and consent was signed. Procedure: Patient was brought back to the OR where general anesthesia was found to be adequate. Patient was prepared and draped in a dorsolithotomy position with yellowfin stirrups. A weighted speculum is placed in the posterior aspect of vagina and cervical dilators were used to dilate the cervix. Uterine manipulator was placed. Varies needle was inserted at the umbilicus and water safety test was passed. Midline supraumbilical 5 mm trocar was inserted under direct visualization. Abdomen was insufflated and above findings were noted. Left lower quadrant 5 mm trocar was inserted under direct visualization. Right lower quadrant 8 mm trocar was inserted under direct visualization. Using atraumatic grasper and a LigaSure device the left fallopian tube was identified to the fimbria and the mesosalpinx was cut and cauterized, fallopian tube was transected at the cornua, removed from the abdominal cavity and sent to pathology. Good hemostasis was noted. In similar fashion the right fallopian tube was identified to the fimbria and the mesosalpinx was cut and cauterized with the LigaSure device, right fallopian tube was transected at the cornua, right fallopian tube was removed from abdomen and sent to pathology. Good hemostasis was noted bilaterally. As noted above 2 mm fundal perforation was noted, overall hemostatic but for good measure clear posterior cul-de-sac with suction irrigation and Maxine was placed over the perforation. Good hemostasis was noted. Abdominal insufflation pressure was dropped to 5 mmHg and good hemostasis remained at all surgical sites and perforation. Trocars removed under direct visualization, good hemostasis was noted. Trocar sites were closed in a subcutaneous fashion and skin glue was placed over the incisions. Good hemostasis was noted. Uterine manipulator was removed. Good hemostasis was noted and all counts were correct x2.
[2023-06-17] MEDS: Acetaminophen 500 MG Tablet 1000 MG PO (10:30)
== END 2023-06-17 11:48 | disposition home or self-care (01) ==
LOC: SDC 05:54 → AC 05:55
PROVIDERS: Anesthesiology; PCP Family Medicine; Referring Provider Obstetrics & Gynecology; Visit Provider Obstetrics & Gynecology
PROC: (CPT 58661; principal; 2023-06-17 07:15)
DX: Z30.2 Encounter for sterilization (principal); F32.A Depression, unspecified; F41.9 Anxiety disorder, unspecified; Z79.899 Other long term (current) drug therapy; Z87.891 Personal history of nicotine dependence
CPT/HCPCS: 58661; 00840; 81025; 85027; 85610; 85730; 86850; 86900; 86901; 88302; J7120; J2405